=== PATIENT | male | born 1940 | race Caucasian/White ===

== ENCOUNTER → 2016-11-28 | Outpatient (CLI) | payer OTHER | LOC: BHLMT 11:15 | PROVIDERS: ATTEND Internal Medicine Cardiovascular Disease | DX: R07.9 Chest pain, unspecified (principal) | CPT/HCPCS: 93005-PO ==

== ENCOUNTER 2016-12-01 10:51 | Observation (INO) | payer OTHER ==
[2016-12-01] MEDS ORDERED: DIAZEPAM 5 MG TAB PO ONE (10:56)
[2016-12-01] MEDS ORDERED: FAMOTIDINE 20 MG TAB PO ONE (10:56)
[2016-12-01] MEDS ORDERED: ASPIRIN EC 325 MG TAB PO ONE (10:56)
[2016-12-01] MEDS ORDERED: NS 1,000 ML IV ONE (10:56)
[2016-12-01] MEDS ORDERED: diphenhydrAMINE 25 MG CAP PO ONE (10:56)
--- NOTE | 2016-12-01 11:23 | CPEKG ---
Heart Rate: 62 RR Interval: 968 P-R Interval: 176 QRSD Interval: 102 QT Interval: 420 QTC Interval: 427 P [place]: 7 QRS [place]: 12 T Wave [place]: 27 EKG Severity - NORMAL ECG - EKG Impression: SINUS RHYTHM Electronically Signed By: Néstor Briggs 02-Dec-2016 06:35:39
[2016-12-01 11:39] LABS: % IMMATURE GRANULYOCYTES 0.4 % (0.0-1.1); ABSOLUTE IMMATURE GRANULOCYTES 0.02 10^3/uL (0.00-0.10); ADD DIFF? NO; ADD MORPH? NO; ADD SCAN? NO; ATYPICAL LYMPHOCYTE FLAG 0 (0-99); FRAGMENT RBC FLAG 0 (0-99); HEMATOCRIT 45.6 % (40.0-51.0); HEMOGLOBIN 16.1 g/dL (13.7-17.5); LEFT SHIFT FLG 0 (0-99); LIPEMIA HEMOLYSIS FLAG 90 (0-99); MEAN CELL HEMOGLOBIN 33.4 pg (27.9-34.1); MEAN CELL HEMOGLOBIN CONCENTR. 35.3 g/dL (32.4-36.7); MEAN CELL VOLUME 94.6 fL (81.5-99.8); PLATELET CLUMPS FLAG 20 (0-99); PLATELET COUNT 169 10^3/uL (150-400); RED BLOOD CELL COUNT 4.82 10^6/uL (4.40-6.38); RED CELL DISTRIBUTION WIDTH 12.3 % (11.5-15.2)
[2016-12-01 11:47] LABS: INR 1.04 (0.83-1.16); PROTIME(PATIENT) 13.5 SEC (12.0-15.0)
[2016-12-01 12:06] LABS: ANION GAP 11 mEq/L (8-16); CALCIUM 9.4 mg/dL (8.5-10.4); CARBON DIOXIDE 23 mEq/l (22-31); CHLORIDE 102 mEq/L (97-110); CHOLESTEROL 119 mg/dL (140-220); CHOLESTEROL/HDL RATIO 2.09 RATIO (1.00-4.97); CREATININE 0.9 mg/dL (0.7-1.3); GLOMERULAR FILTRATION RATE > 60; GLUCOSE 81 mg/dL (70-100); HIGH DENSITY LIPOPROTEIN 57 mg/dL (40-65); LDL/HDL RATIO 0.89 RATIO (1.00-3.64); LOW DENSITY LIPOPROTEIN 51 mg/dL (80-100); MAGNESIUM 2.1 mg/dL (1.6-2.3); NON-HIGH DENSITY LIPOPROTEIN 62 mg/dL (90-129); POTASSIUM 4.4 mEq/L (3.5-5.2); SODIUM 136 mEq/L (134-144); TRIGLYCERIDE 56 mg/dL (40-150); VERY LOW DENSITY LIPOPROTEINS 11 mg/dL (8-25)
--- NOTE | 2016-12-01 12:26 | PDHPUP ---
History & Physical Update H&P update statement: This history and physical update is based on an assessment of the patient which was completed after admission or registration (within 24 hours), but prior to the surgery/procedure. H&P update: H&P reviewed & patient examined, no change in patient's condition since H&P completed
--- NOTE | 2016-12-01 12:27 | PDPROPOC ---
Sedation Plan of Care Sedation Plan of Care: vital signs stable, mental status noted, patient educated of risks, benefits, alternatives, patient can tolerate sedation ASA Classification: ASA 2 Planned drugs: fentanyl, midazolam Mallampati Score: Class 2 Mallampati Reference Image: Patient passed 3-3-2 rule?: Yes
[2016-12-01] MEDS ORDERED: fentaNYL 100 MCG/2 ML INJ ONE ×2 (12:35→14:33)
[2016-12-01] MEDS ORDERED: MIDAZOLAM 2 MG/2 ML VIAL ONE ×3 (12:35→15:01)
[2016-12-01] MEDS ORDERED: IOPAMIDOL (ISOVUE-370) 150 ML BTL IV ONE ×3 (12:35→14:54)
[2016-12-01] MEDS ORDERED: LIDOCAINE 1% 300 MG/30 ML SDV ONE (12:35)
[2016-12-01] MEDS ORDERED: BIVALIRUDIN 250 MG/5 ML VIAL IV ONE ×3 (14:15→15:12)
[2016-12-01] MEDS ORDERED: PRASUGREL HCL 10 MG TAB ONE (14:42)
[2016-12-01] MEDS ORDERED: NITROGLYCERIN 1,500 MCG/15 ML VIAL MISC ONE (14:46)
--- NOTE | 2016-12-01 15:34 | PDDXCAT ---
Diagnostic Cath Note - . Date: 12/01/16 Assistant Accounting Manager: Juan Manuel Indication: CCC Class III and IV angina on medical treatment - Procedure Access: right groin Procedure: left heart catheterization, coronary angiography, left ventriculogram , vein graft injection, HOFF injection - Materials Left Heart Cath size: 6F Left Heart Cath materials: standard multipack (JL4, JR4, pigtail) - Findings-Left Heart Catheterization LM: 50% distal LAD: prox lad stent occluded LCX: plexus of wai and iom ..small with 75% diffuse mom stenosis RCA: large dominant with mild iregs rSV. occl svg to om....2. patent free radial graft to 1st diag widely patent HOFF: incomplete canulazation despite multiple attempts and catheters...appeared to be widely patent with good flow to lad LVEF: 55% with mid anterior rwma Complications: none Estimated blood loss: <50ml Closure method: Angioseal Assessment: 1. difffuse cad with patent grafts to lad and 1st diag..pt with class 3 angina despite mulitiple meds..d/w (and pt beforehand)..i will get interventional consult to assess pci options of the cx which is probably the culprit angina territory Plan: 1. interventional consult with dr guevara
[2016-12-01] MEDS ORDERED: TEMAZEPAM 15 MG CAP PO PRN (15:54)
[2016-12-01] MEDS ORDERED: LORazepam 2 MG/ML INJ IVP PRN (15:54)
[2016-12-01] MEDS ORDERED: NITROGLYCERIN 0.4 MG BTL SL PRN (15:54)
[2016-12-01] MEDS ORDERED: ATROPINE SULFATE 1 MG/10 ML SYR IVP PRN (15:54)
[2016-12-01] MEDS ORDERED: PRASUGREL HCL 10 MG TAB PO ONE (15:54)
[2016-12-01] MEDS ORDERED: ONDANSETRON 4 MG/2 ML VIAL IVP PRN (15:54)
[2016-12-01] MEDS ORDERED: NS 1,000 ML IV SCH (16:00)
--- NOTE | 2016-12-01 16:07 | CPEKG ---
Heart Rate: 60 RR Interval: 1000 P-R Interval: 184 QRSD Interval: 102 QT Interval: 432 QTC Interval: 432 P [place]: -1 QRS [place]: 5 T Wave [place]: 20 EKG Severity - ABNORMAL ECG - EKG Impression: SINUS RHYTHM EKG Impression: PROBABLE ANTEROSEPTAL INFARCT, OLD Electronically Signed By: Néstor Briggs 03-Dec-2016 06:52:57
--- NOTE | 2016-12-01 19:15 | CPIP ---
[f rep st] INVASIVE CARDIAC PROCEDURE DATE OF PROCEDURE: 12/01/2016 PROCEDURES: 1. Coronary angiography. 2. Angioplasty of distal left main. 3. Angioplasty of proximal obtuse marginal 2. INDICATIONS: 1. Known coronary artery disease status post previous bypass grafting surgery. 2. Angina despite maximally tolerated medical therapy. ACCESS AND CORONARY ANGIOGRAPHY: Access and coronary angiography were performed by Dr. Tristin Zambrano. Coronary angiography was notable for severe 2-vessel coronary artery disease with patent HOFF to LA D, and patent aceest-we-xpaiwayp grafts. The saphenous vein graft to the OM artery was occluded and there was high-grade disease involving the distal left main as well as the [place] OM artery. I was c onsulted to perform percutaneous coronary intervention of the distal left main and OM artery to help improve symptoms. PERCUTANEOUS CORONARY INTERVENTION OF THE DISTAL LEFT MAIN AND PROXIMAL OM2 CORONARY ARTERY: A 6-[facility]mo [facility] EBU was advanced to the left main coronary artery and images obtained. The left main coronary ar tristan bifurcated into an LAD and circumflex coronary arteries. The distal left main coronary artery h ad a single discrete 75% stenosis present. The left anterior descending coronary artery was 100% occ luded in the proximal segment. The circumflex coronary artery was diffusely diseased. The primary v essel of the circumflex coronary artery was the OM2 coronary artery. The proximal section of the OM2 coronary artery had a segmental 80% stenosis present. A Luge wire was placed in the distal OM2 sonal nary artery and position verified by angiography. A 2.0 x 15 Emerge balloon was used to pre-dilate t he distal left main coronary artery as well as the mid circumflex coronary artery. The 2.0 x 15 Juanita ge balloon would not cross into the OM2 coronary artery. Followup angiography demonstrated significa nt residual stenosis in the distal left main at 70%. No significant residual stenosis in the mid cir cumflex coronary artery and CHYNA-3 flow. The lesion involving the ostial and proximal OM2 coronary a rtery remained. A 1.5 x 10 Sprinter balloon was used to pre-dilate the OM2 coronary artery. Followu p angiography demonstrated significant residual stenosis at approximately 50% and CHYNA-3 flow. An at tempt was made at passing the 1.5 x 15 Emerge balloon into the proximal portion of the OM2 coronary a rtery; however, it only made its way into the ostial portion of the OM2 coronary artery. The 1.5 x 1 5 balloon was expanded. Followup angiography demonstrated residual stenosis. A 1.5 x 10 Sprinter ba lloon was then placed across the ostial and proximal OM2 coronary artery and deployed several more ti mes. Followup angiography demonstrated CHYNA-3 flow with a residual 50% stenosis present. Several at tempts were made at trying to pass a 2.25 x 12 Synergy drug-eluting stent into the proximal OM2 coron lakshmi artery. These were unsuccessful. Several attempts were made at trying to pass a 2.25 x 8 Synerg y drug-eluting stent into the OM2 coronary artery. These, too, were unsuccessful. It was decided to halt intervention at this time given lack of progress, contrast load, and radiation exposure. Furthe r attempts could be considered with rotablation. COMPLICATIONS: None. CONCLUSIONS: 1. 2-vessel coronary artery disease. 2. Patent left internal mammary artery to left anterior descending graft. 3. Patent radial to diagonal graft. 4. Occluded saphenous vein graft to obtuse marginal 2 coronary artery. 5. Status post angioplasty of the distal left main and obtuse marginal 2 coronary arteries with inab ility to pass stents. /[id number]/MODL
[2016-12-01] MEDS: TIMOLOL 0.5% 15 ML OPHT.BTL EACHEYE SCH (20:49)
[2016-12-01] MEDS ORDERED: CETIRIZINE 10 MG TAB PO SCH (21:00)
[2016-12-01] MEDS ORDERED: TRAVOPROST Z 0.004% 2.5 ML OPHT.BTL EACHEYE SCH (21:00)
[2016-12-01] MEDS ORDERED: LATANOPROST 0.005% 2.5 ML OPHT DROPS EACHEYE SCH (21:00)
[2016-12-01] MEDS ORDERED: ROSUVASTATIN CALCIUM 40 MG TAB PO SCH (21:00)
[2016-12-02 04:45] LABS: % IMMATURE GRANULYOCYTES 0.5 % (0.0-1.1); ABSOLUTE IMMATURE GRANULOCYTES 0.03 10^3/uL (0.00-0.10); ADD DIFF? NO; ADD MORPH? NO; ADD SCAN? NO; ATYPICAL LYMPHOCYTE FLAG 0 (0-99); FRAGMENT RBC FLAG 0 (0-99); HEMATOCRIT 44.1 % (40.0-51.0); HEMOGLOBIN 15.3 g/dL (13.7-17.5); LEFT SHIFT FLG 0 (0-99); LIPEMIA HEMOLYSIS FLAG 90 (0-99); MEAN CELL HEMOGLOBIN 32.9 pg (27.9-34.1); MEAN CELL HEMOGLOBIN CONCENTR. 34.7 g/dL (32.4-36.7); MEAN CELL VOLUME 94.8 fL (81.5-99.8); MEAN PLATELET VOLUME 8.9 fL (8.7-11.7); PLATELET CLUMPS FLAG 0 (0-99); PLATELET COUNT 138 10^3/uL (150-400); RED BLOOD CELL COUNT 4.65 10^6/uL (4.40-6.38); RED CELL DISTRIBUTION WIDTH 12.4 % (11.5-15.2)
[2016-12-02 04:58] LABS: ANION GAP 12 mEq/L (8-16); BILIRUBIN,TOTAL 1.2 mg/dL (0.1-1.4); CALCIUM 8.8 mg/dL (8.5-10.4); CARBON DIOXIDE 22 mEq/l (22-31); CHLORIDE 102 mEq/L (97-110); CREATININE 0.8 mg/dL (0.7-1.3); GLOMERULAR FILTRATION RATE > 60; GLUCOSE 76 mg/dL (70-100); POTASSIUM 4.2 mEq/L (3.5-5.2); SODIUM 136 mEq/L (134-144)
[2016-12-02] MEDS ORDERED: LEVOTHYROXINE 50 MCG TAB PO SCH (06:00)
[2016-12-02 07:25] VITALS: RESP 20; TEMP 97.7; O2SAT 93
[2016-12-02] MEDS ORDERED: amLODIPine BESYLATE 5 MG TAB PO SCH (09:00)
[2016-12-02] MEDS ORDERED: EZETIMIBE 10 MG TAB PO SCH (09:00)
[2016-12-02] MEDS ORDERED: ISOSORBIDE MONONITRATE 60 MG PO SCH (09:00)
[2016-12-02] MEDS ORDERED: PRASUGREL HCL 10 MG TAB PO SCH (09:00)
[2016-12-02] MEDS ORDERED: ASPIRIN EC 325 MG TAB PO SCH (09:00)
[2016-12-02] MEDS ORDERED: METOPROLOL SUCCINATE XR 25 MG TAB PO SCH (09:00)
--- NOTE | 2016-12-02 09:12 | CPEKG ---
Heart Rate: 63 RR Interval: 952 P-R Interval: 176 QRSD Interval: 102 QT Interval: 404 QTC Interval: 414 P [place]: 6 QRS [place]: 15 T Wave [place]: 26 EKG Severity - ABNORMAL ECG - EKG Impression: SINUS RHYTHM Electronically Signed By: Néstor Briggs 02-Dec-2016 15:08:43
[2016-12-02] MEDS: TIMOLOL 0.5% 15 ML OPHT.BTL EACHEYE SCH (09:13)
[2016-12-02 09:18] VITALS: BP 149/80; PULSE 66
--- NOTE | 2016-12-02 10:38 | GDS ---
[f rep st] DISCHARGE SUMMARY ADMISSION DIAGNOSES: 1. Increasing angina. 2. Known coronary artery disease. 3. History of hyperlipidemia. DISCHARGE DIAGNOSES: 1. Angina. Patient had cardiac catheterization that showed patent graft left internal mammary arter y to the left anterior descending and a free radial graft to the 1st diagonal. The circumflex system was a small system with diffuse irregularities. Patient had percutaneous intervention of the left m ain which was approximately 50% stenosed and of a middle obtuse marginal artery. No stenting was don e due to the small size of the vessels. The patient had ejection of 50% with mid anterior hypokinesi s which was known. Right coronary artery was widely patent. 2. History of hyperlipidemia, on medications. 3. History of hypertension, on medications. See discharge reconciliation form. PROCEDURES: Cardiac catheterization by Dr. Zambrano. Percutaneous coronary intervention by Dr. Carlos sarabia. HOSPITAL COURSE: For details of H and P, see prior dictated summary. Briefly, he is a 76-year-old g entleman who had coronary artery disease with PCI and atherectomy in 1998 with coronary bypass grafti ng in 1999, with return of significant angina over the course of the last year or so. Patient was ad mitted for cardiac catheterization as noted above. Patient tolerated the procedure well. The next m orning he had stable vital signs, stable creatinine. He will be discharged home on his current home meds. I have given him a prescription for Effient to take; hopefully, he can get this filled with a prescription card when he is in [place] at his home. For now, he has no bleeding issues or ot her issues. Questions were answered. Follow up with me on a p.r.n. basis. He does live in [facility]. 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 All questions answered. /[id number]/MODL
== END 2016-12-02 11:10 | disposition home or self-care (01) ==
LOC: FCATH 10:51 → F2W 17:56
PROVIDERS: ADMIT Internal Medicine Cardiovascular Disease; ATTEND Internal Medicine Cardiovascular Disease
PROC: 02713ZZ Dilation of Coronary Artery, Two Arteries, Percutaneous Approach (ICD-10-PCS; principal; 2016-12-01)
PROC: B2131ZZ Fluoroscopy of Multiple Coronary Artery Bypass Grafts using Low Osmolar Contrast (ICD-10-PCS; 2016-12-01)
PROC: B2151ZZ Fluoroscopy of Left Heart using Low Osmolar Contrast (ICD-10-PCS; 2016-12-01)
PROC: 4A023N7 Measurement of Cardiac Sampling and Pressure, Left Heart, Percutaneous Approach (ICD-10-PCS; 2016-12-01)
DX: I25.700 Atherosclerosis of coronary artery bypass graft(s), unspecified, with unstable angina pectoris (principal); E78.5 Hyperlipidemia, unspecified; I10 Essential (primary) hypertension; Z95.1 Presence of aortocoronary bypass graft; I25.2 Old myocardial infarction; E03.9 Hypothyroidism, unspecified; I73.9 Peripheral vascular disease, unspecified
CPT/HCPCS: 92920; 92921; 93005; 93459; C1725; C1760; C1769; C1887; J0583; J1644; J2250; J3010; Q9967